=== PATIENT | male | born 1960 | race American Indian/Alaskan Native ===

== ENCOUNTER 2017-04-05 22:12 | Emergency (ER) | payer MEDICARE ==
[2017-04-06 00:13] LABS: Basophils % (Auto) 0.5 % (0.0-1.8); Eosinophils % (Auto) 0.5 % (0.0-4.3); Hematocrit 43.9 % (35.5-45.6); Mean Corpuscular HGB Conc 34 % (32-34); Mean Corpuscular Hemoglobin 28 pg (28-32); Mean Corpuscular Volume 82 fl (84-94); Platelet Count 200 K/mm3 (140-440); Red Blood Count 5.33 M/mm3 (3.65-5.03); Red Cell Distribution Width 13.8 % (13.2-15.2); White Blood Count 10.7 K/mm3 (4.5-11.0)
[2017-04-06 00:17] LABS: Bacteria,Urine 1+ /HPF (Negative); Bilirubin,Urine NEG (Negative); Blood,Urine SM (Negative); Ketones,Urine NEG (Negative); Leukocyte Esterase,Urine NEG (Negative); Mucus,Urine FEW /HPF; Nitrite,Urine NEG (Negative); Urobilinogen,Urine < 2.0 mg/dL (<2.0)
[2017-04-06] MEDS ORDERED: TYLENOL PO ONE (00:18)
[2017-04-06 00:23] LABS: Anion Gap 21 mmol/L; Blood Urea Nitrogen 22 mg/dL (9-20); Calcium 9.8 mg/dL (8.4-10.2); Carbon Dioxide 22 mmol/L (22-30); Chloride 98.6 mmol/L (98-107); Glucose 132 mg/dL (75-100); Sodium 138 mmol/L (137-145)
--- NOTE | 2017-04-06 01:55 | Emergency Department Report ---
HPI - General Chief Complaint: Chest Pain Time Seen by Provider: 04/05/17 23:56 - HPI HPI: The patient is a 56-year-old male whom presents for evaluation of chest pain and weakness. The patient reports transient chest pain 1 hour prior to arrival , midsternal, burning in quality, mild in severity, lasting for minutes and self resolving. He also submits that he experienced lightheadedness and weakness , consistent with previous episodes of hypoglycemia. He was found on scene by EMS to have a low blood sugar of 25. After receiving dextrose the patient states that his symptoms resolved. The patient denies fever, trauma to the head , headache, dyspnea, hemoptysis, unilateral leg swelling, recent immobilization , history of DVT or PE. ED Past Medical Hx - Past Medical History Previous Medical History?: Yes Hx Hypertension: Yes Hx Diabetes: Yes Additional medical history: Brain Aneurysm, Neuropathy - Surgical History Past Surgical History?: Yes Additional Surgical History: RBKA, Kidney Transplant, Hernia surgery X2 - Social History Smoking Status: Never Smoker Substance Use Type: None - Medications Home Medications: Home Medications Medication Instructions Recorded Confirmed Last Taken Type Unobtainable 04/06/17 04/06/17 Unknown History ED Review of Systems ROS: Stated complaint: CHEST PAIN/LOW BLOOD SUGAR Other details as noted in HPI Constitutional: reports lightheadedness denies: fever ENT: denies: throat or neck pain Respiratory: denies: cough, shortness of breath Cardiovascular: reports chest pain Endocrine: denies unexplained weight loss or gain Gastrointestinal: denies: abdominal pain, nausea Genitourinary: denies: dysuria Musculoskeletal: denies: leg swelling Skin: denies: rash Neurological: denies: headache Hematological/Lymphatic: denies: easy bleeding or easy bruising Psych: denies sadness or hopelessness Physical Exam - Physical Exam Vital Signs: Vital Signs 04/05/17 04/05/17 04/06/17 23:20 23:41 00:48 Temperature 98.0 F Pulse Rate 93 H 89 90 Respiratory 15 15 14 Rate Blood Pressure 140/68 Blood Pressure 140/68 133/66 [Left] O2 Sat by Pulse 98 97 Oximetry 04/06/17 00:49 Temperature Pulse Rate Respiratory 14 Rate Blood Pressure Blood Pressure [Left] O2 Sat by Pulse Oximetry Physical Exam: General: well-nourished, well-developed, no acute distress Head: Normocephalic, atraumatic Eyes: normal sclera ENT: Mucous membranes are pink and moist Neck: trachea midline, neck supple, No neck stiffness, no cervical adenopathy Respiratory: Breath sounds equal bilaterally, no wheezing, rales, or rhonchi Cardio: S1 and S2 present, no murmurs, rubs, gallops, capillary refill is brisk Abdomen: Normoactive bowel sounds, soft abdomen, no rigidity, no guarding or rebound tenderness Chest WALL/Back: No tenderness to palpation of the chest wall, no CVA tenderness with percussion Musc: No pitting edema Skin: No rash Neuro: no facial drooping, normal speech Psych: Normal affect ED Course Vital Signs 04/05/17 04/05/17 04/06/17 23:20 23:41 00:48 Temperature 98.0 F Pulse Rate 93 H 89 90 Respiratory 15 15 14 Rate Blood Pressure 140/68 Blood Pressure 140/68 133/66 [Left] O2 Sat by Pulse 98 97 Oximetry 04/06/17 00:49 Temperature Pulse Rate Respiratory 14 Rate Blood Pressure Blood Pressure [Left] O2 Sat by Pulse Oximetry ED Medical Decision Making - Lab Data Result diagrams: 04/05/17 23:49 04/05/17 23:49 - Medical Decision Making The patient was seen and examined by myself. The patient is placed on a manager cardiac cath and continuous pulse ox. On initial evaluation, the patient was found to be in no distress. EKG was negative for findings suggestive of acute cardiac infarct. Labs and imaging are obtained. The patient is given Tegretol for his pain. Chest x-ray is negative for pneumothorax, focal consolidation, pulmonary vascular congestion, pleural effusion, or other obvious acute cardiopulmonary disease process. Lab results were non-concerning including normal level of glucose of 122, and unremarkable level of troponin, electrolytes , renal function. The patient was reevaluated and reported that their symptoms were markedly improved. As the patient has a REGULO risk score less than 2, and a well's score less than 2, the patient is at low risk of ACS or pulmonary emboli etiology of their symptoms. The patient is stable for discharge with outpatient follow-up. The patient is given follow-up and return instructions. The patient expressed understanding and agreed with the plan. The patient is discharged in stable condition. Critical care attestation.: If time is entered above; I have spent that time in minutes in the direct care of this critically ill patient, excluding procedure time. ED Disposition Clinical Impression: Acute chest pain, Hypoglycemia, Weakness generalized Disposition: DC-01 TO HOME OR SELFCARE Is pt being admited?: No Does the pt Need Aspirin: No Condition: Stable Instructions: Chest Pain (ED), Diabetic Hypoglycemia (ED) Referrals: [facility] [Outside] - 3-5 Days Time of Disposition: 01:53
[2017-04-06 02:00] VITALS: BP 136/77
--- NOTE | 2017-04-06 10:02 | XRay Report ---
AP CHEST: HISTORY: chest pain AP view of the chest demonstrates a normal mediastinal and cardiac contour with clear lungs and normal bony and soft tissue structures. IMPRESSION: Unremarkable AP chest.
== END 2017-04-06 02:18 | disposition home or self-care (01) ==
LOC: ED 22:12
DX: R07.9 Chest pain, unspecified (principal); E11.649 Type 2 diabetes mellitus with hypoglycemia without coma; I10 Essential (primary) hypertension; R53.1 Weakness
CPT/HCPCS: 36415; 71010; 80048; 81001; 82962; 84484; 85025; 93005; 93010

== ENCOUNTER 2017-08-08 17:53 | Emergency (ER) | payer MEDICARE ==
[2017-08-08 18:26] VITALS: BP 119/80
[2017-08-08 19:14] LABS: Hematocrit 45.1 % (35.5-45.6); Hemoglobin 14.9 gm/dl (11.8-15.2); Mean Corpuscular HGB Conc 33 % (32-34); Mean Corpuscular Hemoglobin 28 pg (28-32); Mean Corpuscular Volume 85 fl (84-94); Platelet Count 176 K/mm3 (140-440); Red Blood Count 5.31 M/mm3 (3.65-5.03); Red Cell Distribution Width 14.2 % (13.2-15.2); White Blood Count 9.1 K/mm3 (4.5-11.0)
[2017-08-08 19:29] LABS: BUN/Creatinine Ratio 14; Blood Urea Nitrogen 15 mg/dL (9-20); Calcium 9.1 mg/dL (8.4-10.2); Carbon Dioxide 24 mmol/L (22-30); Glucose 117 mg/dL (75-100)
[2017-08-08 19:30] LABS: Anion Gap 18 mmol/L; Chloride 98.1 mmol/L (98-107); Potassium 4.6 mmol/L (3.6-5.0); Sodium 135 mmol/L (137-145)
== END 2017-08-08 22:10 | disposition left against medical advice (07) ==
LOC: ED 17:53
DX: Z53.21 Procedure and treatment not carried out due to patient leaving prior to being seen by health care provider (principal)
CPT/HCPCS: 36415; 80048; 82962; 85027